=== PATIENT | male | born 1975 | race African-American/Black ===

== ENCOUNTER 2019-01-01 11:09 | Inpatient (IN) | payer OTHER ==
[~2019-01-01] VITALS: Ht 172.7 cm; Wt 65.8 kg
[2019-01-01] VITALS (10 sets, daily range): BP systolic 133–177; BP diastolic 69–90; PULSE 95–130; TEMP 98.2–99.9
[2019-01-01] MEDS ORDERED: PREDNISONE10 MG PO (11:28)
[2019-01-01] MEDS ORDERED: KAPSPARGO SPRIN25 MG PO (11:28)
[2019-01-01] MEDS ORDERED: TAPAZOLE10 MG PO (11:29)
--- NOTE | 2019-01-01 17:10 | NUR ---
PATIENT ARRIVED TO ROOM 322-2 VIA BED FROM PACU. PATIENT IS DROWSY, BUT A&OX4. TACHYCARDIA NOTED, OTHERWISE POST-OP VITALS STABLE. BOWEL SOUNDS ACTIVE ALL FOUR QUADRANTS. PATIENT TOLERATING SMALL AMOUNTS OF CLEAR LIQUIDS WITHOUT ANY COMPLAINTS OF N/V. NECK INCISION DRESSED WITH METAPOR DRESSING WITH SCANT AMOUNTS OF DRAINAGE PRESENT. NECK NNAMDI TO BULB SUCTION WITH SEROSANGUINEOUS DRAINAGE PRESENT IN BULB. NNAMDI SUTURES INTACT AND INCISION IS ROVERTO. POSITIVE PEDAL PULSES EQUAL BILATERALLY. IV FLUIDS INFUSING TO LEFT HAND IV VIA GRAVITY FLOW TUBING. CALL LIGHT WITHIN REACH. MOTHER PRESENT AT THE BEDSIDE. PATIENT DENIES ANY NEEDS AT THIS TIME.
[2019-01-01 17:23] LABS: ALBUMIN 3.4 gm/dL (3.5-5.0); CALCIUM 10.2 mg/dL (8.4-10.2); PHOSPHOROUS 3.4 mg/dL (2.5-4.5)
--- NOTE | 2019-01-01 19:03 | NUR ---
REPORT GIVEN TO TAWANA TREVINO.
--- NOTE | 2019-01-01 20:00 | NUR ---
Report received. 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 Assessment complete. VS stable. Denies pain or nausea. Family at bedside. IV left wrist infusing LR@75ml/hr. Medipore dressing to neck-old drainage present-no increase in size. NNAMDI drain to bulb ndyungi-vpey-dieewt drainage noted. Emptied at this time-10mls. Tolerating clear liquid. SCds to feet bilat. Assisted to bathroom to void-steady gait. Fresh ice pack given. Denies questions or concerns. Encouraged to call for needs/increase in pain. Verbalizes understanding. Will monitor.
--- NOTE | 2019-01-02 03:05 | NUR ---
Called to desk with c/o feeling like he has "pooling in my throat that wont go down." States he is not short of breath and can breathe fine. NNAMDI drain emptied at this time-15mls bloody fluid. Did drink some water and states it feels better already and the sensation is gone. Encouraged to continue to drink fluid and let this nurse know if the issue happens again. Up to bathroom. Denies pain or nausea. Will monitor.
[2019-01-02 03:45] VITALS: BP 130/68; PULSE 92; TEMP 98.4
--- NOTE | 2019-01-02 05:46 | NUR ---
Rested off and on this shift. Denied need for pain medications. Had a total of 25mls of bloody fluid from NNAMDI drain. Medipore dressing to neck with scant amount of old drainage present. Tolerated PO-fluids dCd. Denies needs. Denies c/o "pooling in throat" since 299. Call light in reach. Bed in low position. Will monitor.
--- NOTE | 2019-01-02 06:50 | NUR ---
Report given to TAWANA Castaneda
[2019-01-02 07:03] VITALS: BP 129/68; PULSE 97; TEMP 98
[2019-01-02 07:54] LABS: ALBUMIN 3.7 gm/dL (3.5-5.0); CALCIUM 9.3 mg/dL (8.4-10.2); PHOSPHOROUS 5.3 mg/dL (2.5-4.5)
--- NOTE | 2019-01-02 09:10 | NUR ---
MELANIE met with the patient and patient's daughter to discuss discharge plan. The patient lives alone in [place]. He reports independence with ADLs and has a cane. The patient's primary care provider is Captain Villegas at the [facility] on [address] and he receives his medications at [facility]. He reports no difficulties obtaining her meds. The patient does not have advanced directives in EMR, but he states that he does have them completed. He states that his mother, Janis Ortega (ph#[phone]), is his DPOA-HC. The patient plans to return home upon discharge. No other identified needs at this time.
--- NOTE | 2019-01-02 10:50 | NUR ---
Initial visit; Patient thanked Staff Veterinarian for offering God's blessings and wishing him well.
[2019-01-02 12:10] VITALS: BP 133/73; PULSE 96; TEMP 98.1
[2019-01-02 15:37] VITALS: BP 134/76; PULSE 89; TEMP 98
--- NOTE | 2019-01-02 20:00 | NUR ---
Report received. 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 Assessment complete. VS stable. Denies pain and nausea. Voiding without difficulty. + flatus. Plan of care discussed for HS meds as well as AM labs. Denies questions or concerns. Dressing to neck-NNAMDI drain site-C/D/I. Incision to neck-edges well approximated-open to air. No redness or drainage noted. Denies needs. Encouraged to call for questions/concerns/increased pain. Verbalizes understanding. Call light in reach. Will monitor.
[2019-01-02 20:56] VITALS: BP 122/71; PULSE 96; TEMP 98.8
[2019-01-02 23:56] VITALS: BP 134/74; PULSE 81; TEMP 98.1
--- NOTE | 2019-01-03 | NUR ---
Resting in bed eyes closed. No s/s of pain noted. Call light in reach. Will monitor.
[2019-01-03 04:44] VITALS: BP 162/90; PULSE 78; TEMP 97.7
--- NOTE | 2019-01-03 05:00 | NUR ---
Dr Weller notified of elevated blood pressure of 162/90 with a pulse of 78. Denies pain/nausea/numbness/tingling. States he only is bothered when stretching neck and feels a small pull, otherwise no pain. Order received to administer Metoprolol 12.5mg now. Will monitor.
[2019-01-03 06:17] VITALS: BP 152/81
--- NOTE | 2019-01-03 06:55 | NUR ---
Report to TAWANA Castaneda
[2019-01-03 07:14] LABS: ALBUMIN 3.3 gm/dL (3.5-5.0); CALCIUM 8.2 mg/dL (8.4-10.2); PHOSPHOROUS 4.2 mg/dL (2.5-4.5)
[2019-01-03] MEDS ORDERED: TOPROL XL 25MG25 MG PO (07:35)
[2019-01-03] MEDS ORDERED: SYNTHROID0.125 MG/T PO (07:43)
--- NOTE | 2019-01-03 09:05 | NUR ---
Patient alert and oriented, answers questions appropriately. See assessment. Neck incision with edges well approximated, no redness or drainage noted. No numbness or tingling, able to swallow with no issues. No c/o pain or discomfort.
--- NOTE | 2019-01-03 09:06 | NUR ---
Discharge instructions reviewed with patient and family, verbalized understanding. Discharged ambulatory to auto/home with family at [phone].
== END 2019-01-03 09:07 | disposition home or self-care (01) | DRG 627 ==
LOC: SDCO 11:09 → SURG 16:37
PROVIDERS: ADMIT Otolaryngology
PROC: 0GTK0ZZ Resection of Thyroid Gland, Open Approach (ICD-10-PCS; principal; 2019-01-01 13:00)
DX: E05.00 Thyrotoxicosis with diffuse goiter without thyrotoxic crisis or storm (principal); J45.909 Unspecified asthma, uncomplicated; Z87.891 Personal history of nicotine dependence
CPT/HCPCS: J1100; J2405; J2704; J3010; J7120; J7512